=== PATIENT | female | born 1995 | race Caucasian/White ===

== ENCOUNTER 2018-02-15 19:01 | Emergency (ER) | payer SELFPAY ==
[2018-02-15] MEDS: IBUPROFEN 600 MG TAB PO (21:58)
[2018-02-15] MEDS: HYDROCODONE/APAP (5/325) TAB PO (23:57)
== END 2018-02-16 00:19 | disposition home or self-care (01) ==
LOC: FTE 02-16 00:19
DX: S93.402A Sprain of unspecified ligament of left ankle, initial encounter (principal); S93.602A Unspecified sprain of left foot, initial encounter; X58.XXXA Exposure to other specified factors, initial encounter; Y92.9 Unspecified place or not applicable
CPT/HCPCS: 73610; 73630-LT; 99283-25